=== PATIENT | female | born 1995 | race Caucasian/White ===

== ENCOUNTER 2023-05-24 19:43 | Emergency (ER) | payer SELFPAY ==
--- NOTE | 2023-05-24 20:10 | ED Physician Documentation ---
History of Present Illness - Stated complaint Stated Complaint: COUGH/SOA/CHEST PX - Chief complaint Chief Complaint: General - History obtained from History obtained from: Patient - Additonal information Additional information: 28-year-old with no ongoing medical history but she does have a history of severe COVID necessitating ICU admission. She been sick for 5 days with severe body aches, cough, sore throat. High fevers at home up to 102.8. PD PAST MEDICAL HISTORY - Past Medical History Past Medical History: No - Past Surgical History Past Surgical History: No - Allergies Allergies/Adverse Reactions: Allergies Allergy/AdvReac Type Severity Reaction Status Date / Time erythromycin base Allergy Hives Verified 05/24/23 19:58 - Social History Does the pt smoke?: No Smoking Status: Never smoker Does the pt drink ETOH?: No Does the pt have substance abuse?: No - Immunizations Immunizations are current?: Yes - POLST Patient has POLST: No PD ED PE NORMAL - Vitals Vital signs reviewed: Yes - General General: Alert and oriented X 3, Other (Appears miserable but nontoxic) - HEENT HEENT: Ears normal, Pharynx benign - Neck Neck: Supple, no meningeal sign, No bony TTP - Cardiac Cardiac: RRR, No murmur - Respiratory Respiratory: No respiratory distress, Other (Wheezy at both bases with moderate air motion) - Abdomen Abdomen: Non tender - Back Back: No CVA TTP - Derm Derm: Normal color, No rash - Neuro Neuro: Alert and oriented X 3 Results - Vitals Vitals: Vital Signs - 24 hr 05/24/23 05/24/23 19:58 20:20 Temperature 39.4 C H Heart Rate 100 97 Respiratory 16 24 Rate Blood Pressure 112/60 O2 Saturation 96 Oxygen O2 Source Room air - Labs Labs: Laboratory Tests 05/24/23 05/24/23 05/24/23 20:19 20:19 20:41 WBC 4.8 RBC 4.38 Hgb 12.2 Hct 36.7 L MCV 83.8 MCH 27.9 MCHC 33.2 RDW 14.6 Plt Count 186 MPV 11.0 H Neut # (Auto) 2.9 Lymph # (Auto) 1.4 L [place] # (Auto) 0.5 Eos # (Auto) 0.0 Baso # (Auto) 0.0 Absolute Nucleated RBC 0.00 Nucleated RBC % 0.0 Sodium 133 L Potassium 3.2 L Chloride 100 L Carbon Dioxide 24 Anion Gap 9.0 BUN 10 Creatinine 0.8 Estimated GFR (MDRD) 84 L Glucose 128 H Calcium 8.7 Total Bilirubin 0.8 AST 17 ALT 20 Alkaline Phosphatase 60 Total Protein 7.2 Albumin 4.1 Globulin 3.1 Albumin/Globulin Ratio 1.3 Nasal Adenovirus (PCR) NOT DETECTED Nasal B. parapertussis DNA (PCR) NOT DETECTED Nasal Coronavir 229E PCR NOT DETECTED Nasal Coronavir HKU1 PCR NOT DETECTED Nasal Coronavir NL63 PCR NOT DETECTED Nasal Coronavir OC43 PCR NOT DETECTED Nasal Enterovir/Rhinovir PCR NOT DETECTED Nasal Influenza B PCR DETECTED A Nasal Influenza A PCR NOT DETECTED Nasal Parainfluen 1 PCR NOT DETECTED Nasal Parainfluen 2 PCR NOT DETECTED Nasal Parainfluen 3 PCR NOT DETECTED Nasal Parainfluen 4 PCR NOT DETECTED Nasal RSV (PCR) NOT DETECTED Nasal B.pertussis DNA PCR NOT DETECTED Nasal C.pneumoniae (PCR) NOT DETECTED Emil Human Metapneumo PCR NOT DETECTED Nasal M.pneumoniae (PCR) NOT DETECTED Nasal SARS-CoV-2 (PCR) NOT DETECTED - Rads (name of study) Single view chest x-ray is unremarkable without pneumonia. Relevant Findings:: Final report received, EMP independent interpretation of test PD Medical Decision Making - ED course ED course: . 28-year-old woman with viral syndrome, CBC and CMP unremarkable. Positive for influenza B. Clear chest x-ray. Feeling modest improvement after IV fluids and Toradol and this was followed by DuoNeb breathing treatments, small dose of IV hydromorphone and dexamethasone noting that she is wheezing. She is been sick for too long for consideration for antivirals. Departure - Departure Disposition: 01 Home, Self Care Clinical Impression: Influenza B Condition: Good Record reviewed to determine appropriate education?: Yes Instructions: ED Flu Comments: You were seen tonight for influenza. You tested positive for influenza B. Blood work was relatively unremarkable and it is too late in the time course to give you antiviral medication such as Tamiflu. Tylenol and/or ibuprofen for aches and pains and drinks plenty of fluids. Return for any worsening symptoms. You should be improving over the next few days. Forms: PCP List, Activity restrictions
[2023-05-24] MEDS: IPRATROPIUM/ALBUTEROL 3 ML NEB INH STA (20:20)
[2023-05-24 20:22] LABS: BASOPHILS % (AUTO) 0.2 %; EOSINOPHILS % (AUTO) 0.2 %; HCT - HEMATOCRIT 36.7 % (37.0-47.0); HGB - HEMOGLOBIN 12.2 g/dL (12.0-16.0); LYMPHOCYTES # (AUTO) 1.4 10^3/uL (1.5-3.5); LYMPHOCYTES % (AUTO) 29.1 %; MEAN CORPUSCULAR HEMOGLOBIN 27.9 pg (27.0-31.0); MEAN CORPUSCULAR HGB CONC 33.2 g/dL (32.0-36.0); MEAN CORPUSCULAR VOLUME 83.8 fL (81.0-99.0); MONOCYTES # (AUTO) 0.5 10^3/uL (0.0-1.0); NEUTROPHILS # (AUTO) 2.9 10^3/uL (1.5-6.6); NEUTROPHILS % (AUTO) 60.3 %; PLT - PLATELET COUNT 186 10^3/uL (130-450); RED BLOOD COUNT 4.38 10^6/uL (4.20-5.40); RED CELL DISTRIBUTION WIDTH 14.6 % (12.0-15.0); WHITE BLOOD COUNT 4.8 x10^3/uL (4.8-10.8)
[2023-05-24 20:41] LABS: ALBUMIN 4.1 g/dL (3.2-5.5); ALBUMIN/GLOBULIN RATIO 1.3 (1.0-2.2); BILIRUBIN,TOTAL 0.8 mg/dL (0.2-1.0); CALCIUM 8.7 mg/dL (8.5-10.3); CREATININE 0.8 mg/dL (0.6-1.3); POTASSIUM 3.2 mmol/L (3.5-4.5); TOTAL PROTEIN 7.2 g/dL (6.4-8.9)
[2023-05-24] MEDS: KETOROLAC 15 MG/ML VIAL IVP STA (20:43)
[2023-05-24] MEDS: SODIUM CHLORIDE 0.9% 1,000 ML IV STA (20:44)
--- NOTE | 2023-05-24 20:51 | XRAY Report ---
PROCEDURE: Chest 1V INDICATIONS: cough TECHNIQUE: One view of the chest was acquired. COMPARISON: None. FINDINGS: Surgical changes and devices: None. Lungs and pleura: No pleural effusions or pneumothorax. Lungs are clear. Mediastinum: Mediastinal contours appear normal. Heart size is normal. Bones and chest wall: No suspicious bony lesions. Overlying soft tissues appear unremarkable. IMPRESSION: No acute cardiopulmonary process. Reviewed by: Raina Valerio MD on 05/24/2023 8:49 PM PST Approved by: Raina Valerio MD on 05/24/2023 8:49 PM PST Station ID: [id number]
[2023-05-24 21:44] LABS: B. PARAPERTUSSIS- RESP PCR PAN NOT DETECTED; B. PERTUSSIS- RESP PCR PANEL NOT DETECTED; C. PNEUMONIAE- RESP PCR PANEL NOT DETECTED; CORONAVIRUS 229E-RESP PCR NOT DETECTED; CORONAVIRUS HKU1-RESP PCR NOT DETECTED; CORONAVIRUS NL63-RESP PCR NOT DETECTED; CORONAVIRUS OC43-RESP PCR NOT DETECTED; HUMAN METAPNEUMOVIRUS NOT DETECTED; INFLUENZA A- RESP PCR PANEL NOT DETECTED; INFLUENZA B - RESP PCR PANEL DETECTED; M. PNEUMONIAE- RESP PCR PANEL NOT DETECTED; PARAINFLUENZA VIRUS 1 NOT DETECTED; PARAINFLUENZA VIRUS 2 NOT DETECTED; PARAINFLUENZA VIRUS 3 NOT DETECTED; PARAINFLUENZA VIRUS 4 NOT DETECTED; RHINOVIRUS/ENTEROVIRUS NOT DETECTED; RSV- RESP PCR PANEL NOT DETECTED; SARS-CoV-2 -RESP PCR PANEL NOT DETECTED
[2023-05-24] MEDS: HYDROmorphone 1 MG/ML CARPUJECT IVP STA (22:08)
[2023-05-24] MEDS: DEXAMETHASONE 10 MG/ML VIAL IVP STA (22:08)
[2023-05-24] MEDS: HYDROcod/ACET 5/325 Prepack 4 PO STA (22:09)
[2023-05-24 22:42] VITALS: BP 114/59; O2SAT 93
== END 2023-05-24 22:34 | disposition home or self-care (01) ==
LOC: ED 19:43
DX: J10.1 Influenza due to other identified influenza virus with other respiratory manifestations (principal); Z11.52 Encounter for screening for COVID-19
CPT/HCPCS: 36415; 71045; 80053; 85025; 87633; 94640; 94664; 96374; 96375; 99284; J1170

== ENCOUNTER 2023-05-28 21:40 | Emergency (ER) | payer SELFPAY ==
--- NOTE | 2023-05-28 22:02 | ED Physician Documentation ---
History of Present Illness - Stated complaint Stated Complaint: SOA,NECK PX,LEIVA - Chief complaint Chief Complaint: General - History obtained from History obtained from: Patient - Additonal information Additional information: The patient comes to the emergency department chief complaint of ongoing body aches and fevers for the last 9 days. She was diagnosed with influenza A 4 days ago while visiting our emergency department. At that time, she had had fevers ranging from 102-103 at home, as well as cough and shortness of breath. She was worked up with laboratory studies which had shown a normal white blood cell count and with chest x-ray, which was negative. She was started on symptomatic management and discharged home. The patient states that her fevers have improved slightly to 100-101. She states she continues to have a sense of shortness of breath and just feels as though there is pain and pressure between her eyes and behind her cheekbones. She denies any nasal discharge. She states that whenever she tries to blow her nose or cough, she gets a pain extending from between her eyes down through her face and her neck into her upper chest. She states it hurts to take a deep breath. The patient states she still has bodyaches. She is intermittently vomiting. She states she has been able to hold much water down and feels dehydrated. Her cough has been dry. No other complaints at this time. PD PAST MEDICAL HISTORY - Past Medical History Past Medical History: Yes - Past Surgical History Past Surgical History: No - Present Medications Home Medications: Ambulatory Orders Medication Instructions Recorded Confirmed predniSONE [Deltasone] 10 mg PO [id number] #42 tab 05/28/23 - Allergies Allergies/Adverse Reactions: Allergies Allergy/AdvReac Type Severity Reaction Status Date / Time erythromycin base Allergy Hives Verified 05/28/23 21:44 - Social History Does the pt smoke?: No Smoking Status: Never smoker Does the pt drink ETOH?: No Does the pt have substance abuse?: No - Immunizations Immunizations are current?: Yes - POLST Patient has POLST: No PD ED PE NORMAL - Vitals Vital signs reviewed: Yes - General General: Alert and oriented X 3, No acute distress, Well developed/nourished - HEENT HEENT: Atraumatic, PERRL, EOMI, Moist mucous membranes, Other (Facial tenderness over the supraorbital notches extending through nasal bridge and over bilateral maxillary areas. No frontal tenderness. 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, Normal speech - Psych Psych: Normal mood, Normal affect Results - Vitals Vitals: Oxygen O2 Source Room air - Labs Labs: Laboratory Tests 05/28/23 05/28/23 22:09 22:09 WBC 8.4 RBC 4.12 L Hgb 11.3 L Hct 34.7 L MCV 84.2 MCH 27.4 MCHC 32.6 RDW 14.3 Plt Count 241 MPV 10.9 H Neut # (Auto) 4.3 Lymph # (Auto) 3.3 [place] # (Auto) 0.7 Eos # (Auto) 0.0 Baso # (Auto) 0.0 Absolute Nucleated RBC 0.00 Nucleated RBC % 0.0 Sodium 137 Potassium 3.2 L Chloride 103 Carbon Dioxide 26 Anion Gap 8.0 BUN 9 Creatinine 0.7 Estimated GFR (MDRD) 98 Glucose 99 Calcium 9.2 Total Bilirubin 0.8 AST 20 ALT 53 Alkaline Phosphatase 64 Total Protein 7.3 Albumin 4.0 Globulin 3.3 Albumin/Globulin Ratio 1.2 Lipase 20 PD Medical Decision Making - ED course Complexity details: reviewed old records, reviewed results, re-evaluated patient, considered differential, d/w patient ED course: The patient was treated symptomatically with IV fluids, Toradol, and Decadron. She was worked up with labs and chest x-ray, Which were unremarkable. The patient was feeling better on reevaluation I felt she was stable for discharge home. We have discussed home management of the symptoms, the expected self- limited nature of the illness, and the timeline for resolution of symptoms. We have discussed the usual indications for return. Departure - Departure Disposition: 01 Home, Self Care Clinical Impression: Influenza B Condition: Stable Instructions: ED Flu Prescriptions: predniSONE [Deltasone] 10 mg PO [id number] #42 tab Comments: Your laboratory studies look great, as does your chest x-ray. You been hydrated with IV fluids here in the emergency department and treated for your symptoms. We have also given you a prepack of some stronger pain medicine to take at night to help with your headache help you get a little more sleep. A prescription for a steroid taper has been electronically transmitted to the [facility] in [place]. Please pick this up tomorrow and continue taking as directed. Unfortunately, influenza is a longer-lasting virus and is not uncommon to have symptoms for a couple of weeks. There is no evidence of a bacterial infection at this point in time, and as such, antibiotics will not be helpful. Your symptoms will be expected to pass on their own in time. Please follow-up with your primary doctor as needed. Please take the next couple of days off of work to get a little more rest before you plan to go back. You may take Tylenol and ibuprofen for any fevers you may have. Tylenol may be taken at 650 mg every 4 hours as needed and ibuprofen may be taken 600 mg every 6 hours as needed. These medications are unrelated and may be taken together without causing harm. Forms: PCP List, Activity restrictions Discharge Date/Time: 05/28/23 23:18
[2023-05-28] MEDS: SODIUM CHLORIDE 0.9% 1,000 ML IV STA (22:10)
[2023-05-28] MEDS: KETOROLAC 30 MG/ML VIAL IVP STA (22:19)
[2023-05-28] MEDS: DEXAMETHASONE 10 MG/ML VIAL IV STA (22:20)
[2023-05-28] MEDS: DEXAMETHASONE 10 MG/ML VIAL IV ONE (22:21)
[2023-05-28 22:26] LABS: BASOPHILS % (AUTO) 0.1 %; EOSINOPHILS % (AUTO) 0.4 %; HCT - HEMATOCRIT 34.7 % (37.0-47.0); HGB - HEMOGLOBIN 11.3 g/dL (12.0-16.0); LYMPHOCYTES # (AUTO) 3.3 10^3/uL (1.5-3.5); LYMPHOCYTES % (AUTO) 39.7 %; MEAN CORPUSCULAR HEMOGLOBIN 27.4 pg (27.0-31.0); MEAN CORPUSCULAR HGB CONC 32.6 g/dL (32.0-36.0); MEAN CORPUSCULAR VOLUME 84.2 fL (81.0-99.0); MEAN PLATELET VOLUME 10.9 fL (7.9-10.8); MONOCYTES # (AUTO) 0.7 10^3/uL (0.0-1.0); NEUTROPHILS # (AUTO) 4.3 10^3/uL (1.5-6.6); NEUTROPHILS % (AUTO) 51.3 %; PLT - PLATELET COUNT 241 10^3/uL (130-450); RED BLOOD COUNT 4.12 10^6/uL (4.20-5.40); RED CELL DISTRIBUTION WIDTH 14.3 % (12.0-15.0); WHITE BLOOD COUNT 8.4 x10^3/uL (4.8-10.8)
[2023-05-28 22:44] LABS: ALBUMIN/GLOBULIN RATIO 1.2 (1.0-2.2); BILIRUBIN,TOTAL 0.8 mg/dL (0.2-1.0); CALCIUM 9.2 mg/dL (8.5-10.3); CREATININE 0.7 mg/dL (0.6-1.3); POTASSIUM 3.2 mmol/L (3.5-4.5); TOTAL PROTEIN 7.3 g/dL (6.4-8.9)
[2023-05-28] MEDS: HYDROcod/ACET 5/325 Prepack 4 PO STA (23:09)
[2023-05-28 23:15] VITALS: BP 122/65; O2SAT 95
--- NOTE | 2023-05-28 23:16 | XRAY Report ---
PROCEDURE: Chest 1V INDICATIONS: continuing fever/sob/cough TECHNIQUE: One view of the chest was acquired. COMPARISON: Chest radiograph 05/24/2023 FINDINGS: Surgical changes and devices: None. Lungs and pleura: No pleural effusions or pneumothorax. Lungs are clear. Mediastinum: Mediastinal contours appear normal. Heart size is normal. Bones and chest wall: No suspicious bony lesions. Overlying soft tissues appear unremarkable. IMPRESSION: No acute cardiopulmonary process. Reviewed by: Shavon Wilson MD on 05/28/2023 11:15 PM PST Approved by: Shavon Wilson MD on 05/28/2023 11:15 PM PST Station ID: [id number]
== END 2023-05-28 23:18 | disposition home or self-care (01) ==
LOC: ED 21:40
DX: J10.1 Influenza due to other identified influenza virus with other respiratory manifestations (principal)
CPT/HCPCS: 36415; 80053; 83690; 85025; 96374; 96375; 99284